=== PATIENT | female | born 1995 | race Hispanic/Latino ===

== ENCOUNTER 2017-06-24 14:04 | Emergency (ER) | payer SELFPAY ==
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
== END 2017-06-24 19:05 | disposition home or self-care (01) ==
LOC: ERS 14:04
DX: M54.2 Cervicalgia (principal)
CPT/HCPCS: 72040